=== PATIENT | female | born 2000 | race Two or more races ===

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

== ENCOUNTER 2021-05-31 19:56 | Emergency (ER) | payer BC, MEDICAID ==
[~2021-05-31] VITALS: Ht 152.4 cm; Wt 59.0 kg
[2021-05-31 20:02] VITALS: BP 115/62
[2021-05-31] MEDS ORDERED: GUAI600T53 PO (21:27)
[2021-05-31] MEDS ORDERED: ALBU18HF2 INH (21:27)
[2021-05-31] MEDS ORDERED: AZIT250T PO (21:27)
== END 2021-05-31 21:49 | disposition home or self-care (01) ==
LOC: ER 20:02
DX: J40 Bronchitis, not specified as acute or chronic (principal); Z20.822 Contact with and (suspected) exposure to COVID-19; R01.1 Cardiac murmur, unspecified; F90.9 Attention-deficit hyperactivity disorder, unspecified type; F32.9 Major depressive disorder, single episode, unspecified
CPT/HCPCS: 71045; 87426; 99284; C9803

== ENCOUNTER 2021-06-07 19:10 | Emergency (ER) | payer MEDICAID ==
[~2021-06-07] VITALS: Ht 165.1 cm; Wt 54.4 kg
[~2021-06-07 19:10] MED LIST: ALBU18HF2 INH; AZIT250T PO; GUAI600T53 PO
--- NOTE | 2021-06-07 19:25 | NUR ---
A&O X4 BIB SELF C/O SOB SECONDARY TO COUGH. STATES SHE HAD A RECENT DIAGNOSIS OF BRONCHITIS AND PRESCRIPTION FOR ALBUTEROL INHALER WITH NO RELIEF. APPEARS IN MILD DISTRESS RESPIRATIONS EVEN AND UNLABORED SATTING 97% RA. PATIENT HOOKED TO PULSE OX AND MONITOR VSS MD WAS AT BEDSIDE FOR EVAL.
[2021-06-07] MEDS ORDERED: ALBUTEROL FS 2.5 MG/3 ML VIAL.NEB NEB ONE (19:30)
[2021-06-07] MEDS ORDERED: IPRATROPIUM NEB FS 0.5 MG/2.5 ML AMPUL.NEB NEB ONE (19:30)
[2021-06-07] MEDS ORDERED: predniSONE 20 MG TABLET PO ONE (19:30)
[2021-06-07] MEDS ORDERED: PROM118S PO (19:36)
[2021-06-07] MEDS ORDERED: ALBUTEROL FS 2.5 MG/3 ML VIAL.NEB ONE (19:37)
[2021-06-07] MEDS ORDERED: IPRATROPIUM NEB FS 0.5 MG/2.5 ML AMPUL.NEB ONE (19:37)
[2021-06-07] MEDS ORDERED: predniSONE 20 MG TABLET ONE (19:47)
--- NOTE | 2021-06-07 20:10 | NUR ---
REPORTS IMPROVEMENT IN BREATHING FOLLOWING BREATHING TREATMENT
--- NOTE | 2021-06-07 20:18 | NUR ---
Patient discharged to home in stable condition. Written and verbal after care instructions given. Patient verbalizes understanding of instruction.
[2021-06-07 20:26] VITALS: BP 137/79
== END 2021-06-07 20:19 | disposition home or self-care (01) ==
LOC: ER 19:12
DX: R05 Cough (principal); F32.9 Major depressive disorder, single episode, unspecified; F90.9 Attention-deficit hyperactivity disorder, unspecified type; Z79.899 Other long term (current) drug therapy
CPT/HCPCS: 94640; 99283; J7512

== ENCOUNTER 2021-10-01 18:23 | Emergency (ER) | payer MEDICAID ==
[~2021-10-01] VITALS: Ht 152.4 cm; Wt 54.4 kg
[~2021-10-01 18:23] MED LIST changes: +PROM118S PO
[2021-10-01 18:48] VITALS: BP 122/63
--- NOTE | 2021-10-01 18:48 | NUR ---
PT FROM HOME C/O VAGINAL "IRRITATION" X 5 DAYS. PT A/OX4. TOLERATING R/A WELL WITH NO SOB.
--- NOTE | 2021-10-01 19:08 | NUR ---
URINE COLLECTED AND SENT TO LAB
[2021-10-01 19:22] LABS: BILIRUBIN,URINE NEGATIVE (NEGATIVE); COLOR,URINE YELLOW (YELLOW); LEUKOCYTE ESTERASE ,URINE SMALL (NEGATIVE); NITRITE, URINE NEGATIVE (NEGATIVE); PH,URINE 6.5 (5.0-8.0); PROTEIN,URINE NEGATIVE (NEGATIVE); UGLUCOSE NEGATIVE (NEGATIVE); UROBILINOGEN,URINE 0.2 EU/dL (0.2)
[2021-10-01 19:44] LABS: RBC,URINE 0-2 /HPF (0-2)
[2021-10-01 19:45] LABS: BACTERIA,URINE RARE /HPF (None Seen); MUCUS,URINE Few /LPF (None Seen)
[2021-10-01] MEDS ORDERED: CEPH500T PO (21:32)
[2021-10-01] MEDS ORDERED: METR-147 PO (21:32)
--- NOTE | 2021-10-01 21:39 | NUR ---
Patient discharged to home in stable condition. Written and verbal after care instructions given. Patient verbalizes understanding of instruction.
== END 2021-10-02 00:13 | disposition home or self-care (01) ==
LOC: ER 18:31
DX: N39.0 Urinary tract infection, site not specified (principal); N76.0 Acute vaginitis; F32.9 Major depressive disorder, single episode, unspecified; Z79.51 Long term (current) use of inhaled steroids
CPT/HCPCS: 81001; 84703-TC; 87081-TC; 87086-TC; 87210-TC

== ENCOUNTER 2021-12-14 18:14 | Emergency (ER) | payer MEDICAID ==
[~2021-12-14] VITALS: Ht 154.9 cm; Wt 63.5 kg
[~2021-12-14 18:14] MED LIST changes: +CEPH500T PO; +METR-147 PO
[2021-12-14 18:30] VITALS: BP 123/67
[2021-12-14] MEDS ORDERED: DIPH25CA83 PO (18:47)
[2021-12-14] MEDS ORDERED: PRED50TA PO (18:47)
== END 2021-12-14 19:42 | disposition home or self-care (01) ==
LOC: ER 18:17
DX: L50.9 Urticaria, unspecified (principal); F32.A Depression, unspecified; Z86.79 Personal history of other diseases of the circulatory system; Z86.59 Personal history of other mental and behavioral disorders; Z79.52 Long term (current) use of systemic steroids; Z79.51 Long term (current) use of inhaled steroids; Z79.899 Other long term (current) drug therapy

== ENCOUNTER 2022-04-04 20:13 | Emergency (ER) | payer MEDICAID ==
[~2022-04-04] VITALS: Ht 152.4 cm; Wt 63.5 kg
[~2022-04-04 20:13] MED LIST changes: +DIPH25CA83 PO; +PRED50TA PO
--- NOTE | 2022-04-04 20:25 | NUR ---
BIBMOTHER C/O DIFFUCULTY BREATHING, "I NEED TO GASP TO TAKE A FULL BREATHE" SATTING 100% X 2 WEEKS. AMBULATORY, PLACED ON BED, AAOX4, BREATHING EVEN AND UNLABORED.
[2022-04-04] MEDS ORDERED: ALBU8.5H8 INH (20:33)
--- NOTE | 2022-04-04 20:35 | NUR ---
AT BED SIDE
--- NOTE | 2022-04-04 20:46 | NUR ---
Patient discharged to home in stable condition. Written and verbal after care instructions given. Patient verbalizes understanding of instruction.
[2022-04-04 20:47] VITALS: BP 112/90
== END 2022-04-04 20:45 | disposition home or self-care (01) ==
LOC: ER 20:15
DX: R06.02 Shortness of breath (principal); F32.A Depression, unspecified; Z79.899 Other long term (current) drug therapy

== ENCOUNTER 2025-02-03 09:08 | Inpatient (IN) | payer MEDICAID ==
[~2025-02-03] VITALS: Ht 152.4 cm; Wt 72.6 kg
[~2025-02-03 09:08] MED LIST changes: +ALBU8.5H8 INH
[2025-02-03] MEDS ORDERED: HYDROGEN PEROXIDE 480 ML BOTTLE ONE (09:51)
[2025-02-03] MEDS ORDERED: LIDOCAINE 1% INJ 50 ML MDV IJ ONE (09:51)
[2025-02-03] MEDS ORDERED: ACETAMINOPHEN ES 500 MG TABLET ONE (09:52)
[2025-02-03] MEDS ORDERED: ACETAMINOPHEN 650 MG/20.3 ML UDC ONE (09:52)
[2025-02-03] MEDS ORDERED: IBUPROFEN 600 MG TABLET ONE (09:52)
[2025-02-03] MEDS: IBUPROFEN 600 MG TABLET PO ONE (09:59)
[2025-02-03] MEDS: ACETAMINOPHEN ES 500 MG TABLET PO ONE (09:59)
[2025-02-03] MEDS: LIDOCAINE 1% INJ 50 ML MDV IJ ONE (09:59)
[2025-02-03] MEDS: HYDROGEN PEROXIDE 480 ML BOTTLE TP ONE (10:00)
[2025-02-03] MEDS: CEFAZOLIN 1 GM in IV D5W 50 ML IV ONE (12:00)
[2025-02-03] MEDS ORDERED: PARO10TA4 PO (13:16)
[2025-02-03] MEDS ORDERED: TOPAMAX PO (13:17)
[2025-02-03] MEDS ORDERED: ACETAMINOPHEN 325 MG TABLET PO PRN (13:30)
[2025-02-03] MEDS ORDERED: MAG HYDROX/AL HYDROX/SIMETH 30 ML UDC PO PRN (13:30)
[2025-02-03] MEDS ORDERED: ONDANSETRON HCL/PF 4 MG/2 ML VIAL IVP PRN (13:30)
[2025-02-03] MEDS ORDERED: MAGNESIUM HYDROXIDE 30 ML UDC PO PRN (13:30)
[2025-02-03] MEDS ORDERED: CEFAZOLIN 1 GM in IV D5W 50 ML IV SCH (14:00)
[2025-02-03 14:04] LABS: BASOPHILS # (AUTO) 0.1 K/uL (0.0-0.2); BASOPHILS % (AUTO) 0.8 % (0.0-2.0); EOSINOPHILS # (AUTO) 0.1 K/uL (0.0-0.7); EOSINOPHILS % (AUTO) 0.6 % (0.0-6.0); HEMATOCRIT 38 % (33-45); HEMOGLOBIN 12.5 g/dL (11.5-14.8); LYMPHOCYTES # (AUTO) 4.6 K/uL (0.8-4.8); LYMPHOCYTES % (AUTO) 35.8 % (20.0-44.0); MEAN CORPUSCULAR HEMOGLOBIN 28 PG (26.0-33.0); MEAN CORPUSCULAR HGB CONC 33 g/dl (31.0-36.0); MEAN CORPUSCULAR VOLUME 85 fL (82-100); MONOCYTES # (AUTO) 0.8 K/uL (0.1-1.30); MONOCYTES % (AUTO) 6.5 % (2.0-12.0); NEUTROPHILS # (AUTO) 7.2 K/uL (1.8-8.9); NEUTROPHILS % (AUTO) 56.3 % (43.0-81.0); PLATELET COUNT (AUTO) 216 K/uL (150-450); RED BLOOD CELL COUNT(AUTO) 4.42 MIL/uL (4.0-5.2); RED CELL DISTRIBUTION WIDTH 13.8 % (11.5-15.0); WHITE BLOOD COUNT (AUTO) 12.8 K/uL (4.3-11.0)
[2025-02-03 14:13] LABS: CALCIUM, SERUM 8.9 mg/dL (8.5-10.1); CREATININE 0.6 mg/dL (0.6-1.3); MAGNESIUM 2.2 mg/dL (1.8-2.4); PHOSPHORUS 3.6 mg/dL (2.5-4.9); POTASSIUM 3.7 mmol/L (3.5-5.1)
[2025-02-03 15:01] VITALS: BP 108/72; TEMP 98.2; O2SAT 98
[2025-02-03] MEDS: IV NS 0.9% 1,000 ML IV SCH (15:07)
[2025-02-03] MEDS: MORPHINE SULFATE INJ 2 MG/ML DISP.SYRIN IV PRN (15:21)
[2025-02-03 16:00] VITALS: BP 111/69; TEMP 98; O2SAT 99
[2025-02-03] MEDS: CEFAZOLIN 1 GM in IV D5W 50 ML IV SCH (19:50)
[2025-02-03 21:32] VITALS: BP 101/59; TEMP 98.1; O2SAT 100
[2025-02-04 07:54] LABS: BASOPHILS % (AUTO) 0.3 % (0.0-2.0); EOSINOPHILS # (AUTO) 0.1 K/uL (0.0-0.7); EOSINOPHILS % (AUTO) 1.3 % (0.0-6.0); HEMATOCRIT 35 % (33-45); HEMOGLOBIN 11.8 g/dL (11.5-14.8); LYMPHOCYTES # (AUTO) 3.8 K/uL (0.8-4.8); LYMPHOCYTES % (AUTO) 42.3 % (20.0-44.0); MEAN CORPUSCULAR HEMOGLOBIN 29 PG (26.0-33.0); MEAN CORPUSCULAR HGB CONC 34 g/dl (31.0-36.0); MEAN CORPUSCULAR VOLUME 86 fL (82-100); MONOCYTES # (AUTO) 0.6 K/uL (0.1-1.30); MONOCYTES % (AUTO) 6.4 % (2.0-12.0); NEUTROPHILS # (AUTO) 4.5 K/uL (1.8-8.9); NEUTROPHILS % (AUTO) 49.7 % (43.0-81.0); PLATELET COUNT (AUTO) 179 K/uL (150-450); RED BLOOD CELL COUNT(AUTO) 4.07 MIL/uL (4.0-5.2); RED CELL DISTRIBUTION WIDTH 13.8 % (11.5-15.0)
[2025-02-04 08:00] VITALS: BP 111/73; TEMP 98.2; O2SAT 98
[2025-02-04] MEDS: PAROXETINE HCL 10 MG TABLET PO SCH (08:22)
[2025-02-04 08:23] LABS: INR 0.97 (0.91-1.10); PARTIAL THROMBOPLASTIN TIME 30.8 SEC (24.3-34.3); PROTHROMBIN TIME 10.3 SECS (9.2-11.1)
[2025-02-04] MEDS: HYDROMORPHONE 1 MG/1 ML DISP.SYRIN IV PRN (08:55)
[2025-02-04 08:56] LABS: BILIRUBIN,TOTAL 0.4 mg/dL (0.2-1.0); CALCIUM, SERUM 8.1 mg/dL (8.5-10.1); CREATININE 0.6 mg/dL (0.6-1.3); POTASSIUM 3.6 mmol/L (3.5-5.1); TOTAL PROTEIN, SERUM 6.4 g/dL (6.4-8.2)
[2025-02-04 10:49] LABS: PREGNANCY TEST URINE QUAL NEGATIVE (NEGATIVE)
[2025-02-04] MEDS ORDERED: BUPIVACAINE 0.25% 75 MG/30 ML VIAL ONE (11:29)
[2025-02-04] MEDS ORDERED: ANESTHESIA TRAY IN PYXIS 1 EA TRAY MC ONE (11:29)
[2025-02-04] MEDS ORDERED: VANCOMYCIN 1 GM VIAL ONE ×2 (11:29→12:04)
[2025-02-04] MEDS ORDERED: LIDOCAINE 1%-EPI 1:100,000 20 ML VIAL ONE (11:29)
[2025-02-04] MEDS ORDERED: POLYMYXIN B SULFATE 0 UNITS ONE (11:29)
[2025-02-04] MEDS ORDERED: BUPIVACAINE 0.5 % PF 150 MG/30 ML VIAL ONE (11:29)
[2025-02-04] MEDS ORDERED: LIDOCAINE HCL/MPF 1% 30 ML VIAL IJ ONE (12:04)
[2025-02-04] MEDS ORDERED: ROCURONIUM BROMIDE 50 MG/5 ML ONE (12:06)
[2025-02-04] MEDS ORDERED: FENTANYL PF 100MCG/2ML AMPUL ONE ×2 (12:06→13:03)
[2025-02-04] MEDS ORDERED: BACITRACIN ZINC OINT (15 GM) 15 GM TUBE TP ONE (12:08)
[2025-02-04] MEDS ORDERED: MIDAZOLAM HCL 2 MG/2ML VIAL ONE (12:11)
[2025-02-04] MEDS ORDERED: MEPERIDINE HCL/PF 50 MG/ML DISP.SYRIN IV PRN (13:30)
[2025-02-04] MEDS ORDERED: MORPHINE SULFATE INJ 10 MG/ML DISP.SYRIN IV PRN (13:30)
[2025-02-04] MEDS ORDERED: ONDANSETRON HCL/PF 4 MG/2 ML VIAL IVP PRN (13:30)
[2025-02-04 20:00] VITALS: BP 104/60; TEMP 98.2; O2SAT 98
[2025-02-05] MEDS ORDERED: IV NS 0.9% 1,000 ML IV PRN (06:56)
[2025-02-05 07:48] LABS: BASOPHILS # (AUTO) 0.1 K/uL (0.0-0.2); BASOPHILS % (AUTO) 0.5 % (0.0-2.0); EOSINOPHILS # (AUTO) 0.1 K/uL (0.0-0.7); EOSINOPHILS % (AUTO) 0.7 % (0.0-6.0); HEMATOCRIT 37 % (33-45); HEMOGLOBIN 12.4 g/dL (11.5-14.8); LYMPHOCYTES % (AUTO) 25.8 % (20.0-44.0); MEAN CORPUSCULAR HEMOGLOBIN 29 PG (26.0-33.0); MEAN CORPUSCULAR HGB CONC 33 g/dl (31.0-36.0); MEAN CORPUSCULAR VOLUME 86 fL (82-100); MONOCYTES # (AUTO) 0.6 K/uL (0.1-1.30); MONOCYTES % (AUTO) 5.4 % (2.0-12.0); NEUTROPHILS # (AUTO) 7.8 K/uL (1.8-8.9); NEUTROPHILS % (AUTO) 67.6 % (43.0-81.0); PLATELET COUNT (AUTO) 158 K/uL (150-450); RED BLOOD CELL COUNT(AUTO) 4.32 MIL/uL (4.0-5.2); RED CELL DISTRIBUTION WIDTH 13.6 % (11.5-15.0); WHITE BLOOD COUNT (AUTO) 11.5 K/uL (4.3-11.0)
[2025-02-05 08:14] LABS: CALCIUM, SERUM 7.8 mg/dL (8.5-10.1); CREATININE 0.5 mg/dL (0.6-1.3); POTASSIUM 3.8 mmol/L (3.5-5.1)
[2025-02-05 08:26] LABS: PHOSPHORUS 3.1 mg/dL (2.5-4.9)
[2025-02-05 08:57] VITALS: BP 106/63; TEMP 98.8; O2SAT 98
[2025-02-05] MEDS ORDERED: HYDR-3976 PO (11:48)
[2025-02-05] MEDS ORDERED: DOXY150T3 PO (11:48)
[2025-02-05] MEDS ORDERED: CIPR500S2 PO (11:48)
== END 2025-02-05 16:21 | disposition home or self-care (01) | DRG 316 ==
LOC: ER 09:08 → MED 13:20
PROC: 0HQQXZZ Repair Finger Nail, External Approach (ICD-10-PCS; 2025-02-04)
PROC: 0PST04Z Reposition Right Finger Phalanx with Internal Fixation Device, Open Approach (ICD-10-PCS; principal; 2025-02-04 12:00)
DX: S62.634B Displaced fracture of distal phalanx of right ring finger, initial encounter for open fracture (principal); E66.9 Obesity, unspecified; F32.A Depression, unspecified; F90.9 Attention-deficit hyperactivity disorder, unspecified type; W22.09XA Striking against other stationary object, initial encounter; S62.632A Displaced fracture of distal phalanx of right middle finger, initial encounter for closed fracture; Z68.31 Body mass index [BMI] 31.0-31.9, adult; Y92.89 Other specified places as the place of occurrence of the external cause
CPT/HCPCS: 36415; 71045-TC; 73130-TC; 73140-TC; 80048-TC; 80053-TC; 83735-TC; 84100-TC; 84702-TC; 84703-TC; 85025-TC; 85610-TC; 85730-TC; 86850-TC; A4223; A6403; G0378; J0330; J0690; J1100; J1171; J1885; J2250; J2270; J2405; J2704; J3010; J3370; J3490; J7030; J7060

== ENCOUNTER 2025-02-22 11:45 | Emergency (ER) | payer MEDICAID ==
[~2025-02-22] VITALS: Ht 152.4 cm; Wt 71.7 kg
[~2025-02-22 11:45] MED LIST changes: -ALBU18HF2 INH; -ALBU8.5H8 INH; -AZIT250T PO; -CEPH500T PO; +CIPR500S2 PO; -DIPH25CA83 PO; +DOXY150T3 PO; -GUAI600T53 PO; +HYDR-3976 PO; -METR-147 PO; +PARO10TA4 PO; -PRED50TA PO; -PROM118S PO; +TOPAMAX PO
[2025-02-22 11:54] VITALS: BP 119/77; TEMP 97.7; O2SAT 100
[2025-02-22] MEDS: IBUPROFEN 400 MG TABLET PO ONE (12:30)
[2025-02-22] MEDS: oxyCODONE/APAP (5/325 MG) 1 UDTAB TABLET PO ONE (13:00)
[2025-02-22] MEDS ORDERED: oxyCODONE/APAP (5/325 MG) 1 UDTAB TABLET ONE (13:13)
[2025-02-22] MEDS ORDERED: IBUPROFEN 400 MG TABLET ONE (13:13)
== END 2025-02-22 14:37 | disposition home or self-care (01) ==
LOC: ER 11:48
DX: S62.91XD Unspecified fracture of right hand, subsequent encounter for fracture with routine healing (principal); Z48.00 Encounter for change or removal of nonsurgical wound dressing; Z79.899 Other long term (current) drug therapy; Z86.79 Personal history of other diseases of the circulatory system; Z86.69 Personal history of other diseases of the nervous system and sense organs; X58.XXXD Exposure to other specified factors, subsequent encounter

== ENCOUNTER 2025-05-14 20:55 | Emergency (ER) | payer MEDICAID ==
[~2025-05-14] VITALS: Ht 152.4 cm; Wt 68.0 kg
[2025-05-14 22:22] VITALS: BP 112/88; TEMP 98.3; O2SAT 99
== END 2025-05-14 23:28 | disposition home or self-care (01) ==
LOC: ER 21:05
DX: Z48.00 Encounter for change or removal of nonsurgical wound dressing (principal); Z79.899 Other long term (current) drug therapy